=== PATIENT | male | born 1990 | race American Indian/Alaskan Native ===

== ENCOUNTER 2018-04-30 17:40 | Emergency (ER) | payer BC, OTHER ==
[2018-04-30 18:44] VITALS: RESP 18; TEMP 98.2
--- NOTE | 2018-04-30 19:18 | ED PDOC ---
Arrival/HPI - General Chief Complaint: Lower Extremity Problem/Injury Time Seen by Provider: 04/30/18 18:50 Historian: Patient - History of Present Illness Narrative History of Present Illness (Text): 04/30/18 18:50 27 year old male, with no significant past medical history, presents to the Emergency Department complaining of left ankle discomfort since yesterday. 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 Patient states worsening pain with swelling since onset prompting him to present to the ED for medical evaluation. Patient denies any numbness, decrease in ROM, head injury, neck pain, back pain, other extremity pain/trauma.injury. Patient denies any other somatic complaints. Time/Duration: 24 hours Symptom Onset: Gradual Symptom Course: Unchanged Quality: Aching Activities at Onset: Light Context: Work Past Medical History - Provider Review Nursing Documentation Reviewed: Yes - Psychiatric Hx Substance Use: No Family/Social History - Physician Review Nursing Documentation Reviewed: Yes Family/Social History: No Known Family HX Smoking Status: Never Smoked Hx Alcohol Use: Yes Frequency of alcohol use: Socially Hx Substance Use: No Allergies/Home Meds Allergies/Adverse Reactions: Allergies No Known Allergies Allergy (Verified 04/30/18 18:44) Review of Systems - Physician Review All systems were reviewed & negative as marked: Yes - Review of Systems Constitutional: absent: Fevers Respiratory: absent: SOB, Cough Cardiovascular: absent: Chest Pain, HERNANDEZ Gastrointestinal: absent: Abdominal Pain, Diarrhea, Nausea, Vomiting Musculoskeletal: Arthralgias (left ankle pain), Joint Swelling (left ankle swelling). absent: Back Pain, Neck Pain Skin: absent: Rash Neurological: absent: Headache, Dizziness Physical Exam Vital Signs Reviewed: Yes Vital Signs Temp Pulse Resp BP Pulse Ox 04/30/18 18:42 98.2 F 67 18 138/92 H 100 Temperature: Afebrile Blood Pressure: Normal Pulse: Regular Respiratory Rate: Normal Appearance: Positive for: Well-Appearing, Non-Toxic, Comfortable Pain Distress: Mild Mental Status: Positive for: Alert and Oriented X 3 - Systems Exam Head: Present: Atraumatic, Normocephalic Neck: Present: Normal Range of Motion Back: Present: Normal Inspection Upper Extremity: Present: Normal Inspection. No: Cyanosis, Edema Lower Extremity: Present: NORMAL PULSES, Normal ROM, Tenderness (mild tenderness with moderate swelling and ecchymosis to the lower aspect of left ankle. ), Neurovascularly Intact, Capillary Refill < 2 s. No: Edema, Deformity, Temperature Abnormalties Neurological: Present: GCS=15, CN II-XII Intact, Speech Normal Skin: Present: Warm, Dry, Normal Color. No: Rashes Psychiatric: Present: Alert, Oriented x 3, Normal Insight, Normal Concentration Medical Decision Making ED Course and Treatment: 04/30/18 18:50 Impression: 27 year old male presents to the Emergency Department complaining of left ankle discomfort. Differential Diagnosis included but are not limited to: fracture Plan: -- X-ray of Left Ankle -- X-ray of left foot -- Reassess and disposition Prior Visits: Notes and results from previous visits were reviewed. Progress Notes: X-ray of Left Ankle : +edema, no fracture, no dislocation. X-ray of Left Foot : + ? chip fracture to the medial aspect of the navicular bone, no dislocation. X-ray results discussed with the patient in great detail. Orthoglass short leg splint applied. Neurovascular intact post splint application. Patient instructed on crutch walking. Patient instructed to follow-up with podiatry referral provided in 1-2 days without fail. Advised to take medication as prescribed. Rest, ice and elevate the joint. Return to the emergency room at any time for any new or worsening symptoms. Patient states he fully agrees with and understands discharge instructions. States that he agrees with the plan and disposition. Verbalized and repeated discharge instructions and plan. I have given the patient opportunity to ask any additional questions. - RAD Interpretation Radiology Orders: 04/30/18 18:50 ANKLE LEFT 3 VIEWS ROUTINE [RAD] Stat FOOT LEFT 3 VIEWS ROUTINE [RAD] Stat - PA / ANESTHETIC ASSISTANT / Resident Statement MD/DO has reviewed & agrees with the documentation as recorded. - Scribe Statement The provider has reviewed the documentation as recorded by the Eddieibe Loretta Nathan. All medical record entries made by the Eddieibjona were at my direction and personally dictated by me. I have reviewed the chart and agree that the record accurately reflects my personal performance of the history, physical exam, medical decision making, and the department course for this patient. I have also personally directed, reviewed, and agree with the discharge instructions and disposition. Disposition/Present on Arrival - Present on Arrival Any Indicators Present on Arrival: No History of DVT/PE: No History of Uncontrolled Diabetes: No Urinary Catheter: No History of Decub. Ulcer: No History Surgical Site Infection Following: None - Disposition Have Diagnosis and Disposition been Completed?: Yes Diagnosis: Left ankle sprain, Navicular fracture, foot Disposition: HOME/ ROUTINE Disposition Time: 19:30 Patient Plan: Discharge Condition: STABLE Discharge Instructions (ExitCare): Ankle Sprain (DC), Foot Fracture (DC) Additional Instructions: Thank you for letting us take care of you today. You were treated for L ankle sprain, possible navicular bone fracture - L foot. The emergency medical care you received today was directed at your acute symptoms. If you were prescribed any medication, please fill it and take as directed. It may take several days for your symptoms to resolve. Return to the Emergency Department if your symptoms worsen, do not improve, or if you have any other problems. Please contact your doctor in 2 days for re-evaluation and follow up / or call one of the physicians/clinics you have been referred to that are listed on the Patient Visit Information form that is included in your discharge packet. Bring any paperwork you were given at discharge with you along with any medications you are taking to your follow up visit. Our treatment cannot replace ongoing medical care by a primary care provider (PCP) outside of the emergency department. Thank you for allowing the [facility] team to be part of your care today. If you had an X-Ray : A Radiologist will review the ED reading if any change in treatment is needed we will contact you. Prescriptions: Naproxen 500 mg PO BID PRN #20 tablet PRN Reason: Pain, Moderate (4-7) Referrals: Brian Breaux MD [Primary Care Provider] - Follow up with primary Anastasiia Estrada DPM [Staff Provider] - Follow up with primary Forms: Manifest (Turkmen), WORK NOTE
[2018-04-30 20:05] VITALS: BP 124/79; PULSE 80; O2SAT 99
--- NOTE | 2018-05-01 09:44 | RAD ---
Date of service: 04/30/2018 PROCEDURE: Left Ankle Radiographs. HISTORY: pain COMPARISON: None FINDINGS: BONES: Normal. No fracture. JOINTS: Normal. No osteoarthritis. Ankle mortise maintained. Talar dome intact SOFT TISSUES: Normal. OTHER FINDINGS: None. IMPRESSION: Normal left ankle radiographs.
--- NOTE | 2018-05-01 13:26 | RAD ---
Date of service: 04/30/2018 PROCEDURE: Left Foot Radiographs. HISTORY: pain COMPARISON: None. FINDINGS: BONES: Normal. No fracture. JOINTS: Normal. SOFT TISSUES: Normal. OTHER FINDINGS: None. IMPRESSION: Normal left foot radiographs.
== END 2018-04-30 20:03 | disposition home or self-care (01) ==
LOC: ED 17:40
DX: S93.402A Sprain of unspecified ligament of left ankle, initial encounter (principal); S92.252A Displaced fracture of navicular [scaphoid] of left foot, initial encounter for closed fracture; X50.1XXA Overexertion from prolonged static or awkward postures, initial encounter; Y92.89 Other specified places as the place of occurrence of the external cause